=== PATIENT | male | born 1955 | race Native Hawaiian/Other Pacific Islander ===

== ENCOUNTER 2017-08-19 15:49 | Emergency (ER) | payer OTHER ==
[~2017-08-19] VITALS: Ht 172.7 cm; Wt 83.9 kg
[2017-08-19] MEDS ORDERED: RABEPRAZOLE SOD20 MG PO (16:11)
[2017-08-19] MEDS ORDERED: LISI20TA11 PO (16:11)
[2017-08-19] MEDS ORDERED: ASPIR-LOW81 MG PO (16:12)
[2017-08-19] MEDS ORDERED: HYDROCHLOROT12.5 M1 PO (16:12)
[2017-08-19 16:19] LABS: PLATELET COUNT 256 K/uL (142-355)
[2017-08-19 16:20] LABS: POTASSIUM 3.4 mmol/L (3.6-5.2); SODIUM 139 mmol/L (136-145)
[2017-08-19 16:33] LABS: PARTIAL THROMBOPLASTIN TIME 24.1 SECONDS (24.5-33.6)
[2017-08-19 17:00] VITALS: BP 139/73; TEMP 98.3
== END 2017-08-19 17:00 | disposition home or self-care (01) ==
LOC: ED 15:49
PROVIDERS: Emergency Medicine
DX: R07.89 Other chest pain (principal)
CPT/HCPCS: 36415; 80053; 81000; 82550; 83735; 84484; 85027; 85610; 85730; 93005; 99284

== ENCOUNTER 2017-12-04 12:01 | Observation (INO) | payer OTHER ==
[~2017-12-04] VITALS: Ht 172.7 cm; Wt 88.5 kg
[~2017-12-04 12:01] MED LIST: ASPIR-LOW81 MG PO; HYDROCHLOROT12.5 M1 PO; LISI20TA11 PO; RABEPRAZOLE SOD20 MG PO
[2017-12-04 12:26] VITALS: BP 116/73; TEMP 98.3
[2017-12-04 12:33] LABS: POTASSIUM 3.7 mmol/L (3.6-5.2)
[2017-12-04 12:45] LABS: PLATELET COUNT 292 K/uL (142-355)
[2017-12-04 17:18] VITALS: BP 132/83; TEMP 97.6; Ht 172.7 cm; Wt 88.5 kg
[2017-12-04 20:00] VITALS: BP 125/80; TEMP 98.6
[2017-12-04 23:51] VITALS: BP 124/70; TEMP 97.8
[2017-12-05 03:51] VITALS: BP 115/79; TEMP 98.4
[2017-12-05 04:48] LABS: PLATELET COUNT 225 K/uL (142-355)
[2017-12-05 05:07] LABS: POTASSIUM 3.8 mmol/L (3.6-5.2)
[2017-12-05 08:11] VITALS: BP 131/76; TEMP 98
[2017-12-05 11:40] VITALS: BP 128/82; TEMP 97.6
[2017-12-05 16:00] VITALS: BP 131/80; TEMP 98
[2017-12-05 19:55] VITALS: BP 118/79; TEMP 98
[2017-12-06] VITALS: BP 118/74; TEMP 98.2
[2017-12-06 03:55] VITALS: BP 119/81; TEMP 98.2
[2017-12-06 05:45] LABS: PLATELET COUNT 231 K/uL (142-355)
[2017-12-06 06:04] LABS: POTASSIUM 3.9 mmol/L (3.6-5.2)
[2017-12-06 08:00] VITALS: BP 124/78; TEMP 97.4
== END 2017-12-06 13:40 | disposition home or self-care (01) ==
LOC: ED 12:01 → MED/SURG 14:14 → ED 14:14 → MED/SURG 14:14
PROVIDERS: ADMIT Specialist
DX: R07.89 Other chest pain (principal); I47.1 Supraventricular tachycardia; R00.2 Palpitations; I10 Essential (primary) hypertension; R79.89 Other specified abnormal findings of blood chemistry
CPT/HCPCS: 36415; 80053; 82550; 82553; 83735; 84100; 84484; 85027; 85379; 93005; 96365; 96375; 99220; 99284; G0378; J0150; J0153; J1644

== ENCOUNTER 2018-12-07 08:02 | Outpatient (CLI) | payer OTHER | END 2018-12-07 20:02 | disposition home or self-care (01) | LOC: CT 08:02 | DX: R10.2 Pelvic and perineal pain (principal) | CPT/HCPCS: 36415; 82565; 84520; Q9963 ==